=== PATIENT | female | born 2000 | race Caucasian/White ===

== ENCOUNTER 2019-11-18 18:47 | Emergency (ER) | payer SELFPAY ==
[2019-11-18 19:51] LABS: Absolute Lymphocytes (CBC) 1.8 K/uL (0.7-4.9); Basophils % 0.4 % (0-1.3); Hematocrit 39.4 % (36.0-45.0); Lymphocytes % 23.7 % (15.3-44.8); MPV 8.7 fL (7.6-11.3)
[2019-11-18 20:07] LABS: Urine Blood 3+ (NEG); Urine Glucose NEGATIVE (NEG); Urine Protein TRACE (NEG); Urine Specific Gravity 1.025 (1.005-1.030); Urine pH 6.5 (5.0-7.0)
[2019-11-18 20:11] LABS: BUN Blood Urea Nitrogen 8 mg/dL (7-18); Bicarbonate 25 mmol/L (21-32); Glucose Level 77 mg/dL (74-106); Potassium 3.7 mmol/L (3.5-5.1); Sodium Level 142 mmol/L (136-145)
[2019-11-18 20:14] LABS: HCG, Quantitative < 1 mIU/mL (1-3)
--- NOTE | 2019-11-18 20:41 | ER ---
Nurse's Notes [facility] Name: Laurence Espinoza Age: 19 yrs Sex: Female : 2000 Arrival Date: 11/18/2019 Time: 18:56 Bed 5 Private MD: Diagnosis: Abnormal uterine and vaginal bleeding, unspecified Presentation: 11/17 19:06 Chief complaint: Patient states: 5 weeks . Vaginal bleeding, bright, moderate ca1 to heavy, with a few clots since this morning. Reports cramping on lower abdomen. Denies N.V. Coronavirus screen: Client denies travel out of the [place] in the last 14 days. At this time, the client does not indicate any symptoms associated with coronavirus-19. Ebola Screen: Patient negative for fever greater than or equal to 101.5 degrees Fahrenheit, and additional compatible Ebola Virus Disease symptoms Patient denies exposure to infectious person. Patient denies travel to an Ebola-affected area in the 21 days before illness onset. No symptoms or risks identified at this time. Initial Sepsis Screen: Does the patient meet any 2 criteria? No. Patient's initial sepsis screen is negative. Does the patient have a suspected source of infection? No. Patient's initial sepsis screen is negative. Risk Assessment: Do you want to hurt yourself or someone else? Patient reports no desire to harm self or others. Onset of symptoms was November 18, 2019. 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 - Social history:: Smoking status: Patient denies any tobacco usage or history of. Screenin:44 Abuse screen: Denies threats or abuse. Denies injuries from another. Nutritional mg2 screening: No deficits noted. Tuberculosis screening: No symptoms or risk factors identified. Fall Risk IV access (20 points). Assessment: 19:44 General: Appears in no apparent distress. comfortable, Behavior is calm, cooperative. mg2 Pain: Denies pain. Neuro: Level of Consciousness is awake, alert, obeys commands, Oriented to person, place, time, situation. Cardiovascular: Capillary refill < 3 seconds Patient's skin is warm and dry. Respiratory: Airway is patent Respiratory effort is even, unlabored, Respiratory pattern is regular, symmetrical. GI: No signs and/or symptoms were reported involving the gastrointestinal system. : Reports vaginal bleeding that is with clots, moderate flow. EENT: No signs and/or symptoms were reported regarding the EENT system. Derm: Skin is intact, is healthy with good turgor, Skin is pink, warm \T\ dry. normal. Musculoskeletal: Circulation, motion, and sensation intact. Capillary refill < 3 seconds. 20:50 Reassessment: Patient and/or family updated on plan of care and expected duration. Pain ea level reassessed. Patient is alert, oriented x 3, equal unlabored respirations, skin warm/dry/pink. Discharge instruction given to patient, verbalized the understanding of instruction. Pt left ED ambulatory tolerating well. Vital Signs: 19:06 BP 132 / 90; Pulse 100; Resp 16 S; Temp 98.3(TE); Pulse Ox 100% on R/A; Weight 68.95 kg ca1 (R); Height 5 ft. 2 in. (157.48 cm) (R); 19:45 BP 121 / 84; Pulse 88; Resp 18; Pulse Ox 100% on R/A; Pain 0/10; mg2 20:51 BP 120 / 60; Pulse 70; Resp 18; Pulse Ox 99% ; ea 19:06 Body Mass Index 27.80 (68.95 kg, 157.48 cm) ca1 ED Course: 18:56 Patient arrived in ED. bg2 19:08 Triage completed. ca1 19:08 Arm band placed on right wrist. ca1 19:11 Aniket Ramírez PA is PHCP. cp 19:11 Fred Damian MD is Attending Physician. cp 19:22 Dale Hernandez RN is Primary Nurse. mg2 19:45 Patient has correct armband on for positive identification. Door closed. Warm blanket mg2 given. 19:45 No provider procedures requiring assistance completed. Inserted saline lock: 20 gauge mg2 in right antecubital area, using aseptic technique. Blood collected. 20:39 Damon Garza MD is Referral Physician. cp 20:51 IV discontinued, intact, bleeding controlled, No redness/swelling at site. Pressure mg2 dressing applied. Administered Medications: No medications were administered Outcome: 20:40 Discharge ordered by MD. cp 20:51 Discharged to home ambulatory, with family. ea 20:51 Condition: stable 20:51 Instructed on discharge instructions, Demonstrated understanding of instructions, follow-up care. 20:52 Patient left the ED. ea Signatures: Daysi Dave bg2 Aniket Ramírez PA PA cp Antunez, Elena, RN RN ea Gardose, Michele, RN RN mg2 Acob, Cheryl, RN RN ca1
--- NOTE | 2019-11-18 20:41 | EDPHYS ---
Physician Documentation [facility] Name: Laurence Espinoza Age: 19 yrs Sex: Female : 2000 Arrival Date: 11/18/2019 Time: 18:56 Bed 5 Private MD: ED Physician Fred Damian HPI: 11/17 19:21 This 19 yrs old Female presents to ER via Ambulatory with complaints of cp Vaginal Bleeding - + preg test. 19:21 The patient presents with vaginal bleeding that is with clots. Onset: The cp symptoms/episode began/occurred today. Associated signs and symptoms: Pertinent negatives: fever, abdominal pain. 19:25 Patient reports taking several home tests that returned positive. 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 - Social history:: Smoking status: Patient denies any tobacco usage or history of. ROS: 19:30 Constitutional: Negative for body aches, chills, fever, poor PO intake. cp 19:30 Cardiovascular: Negative for chest pain, palpitations. cp 19:30 Respiratory: Negative for cough, shortness of breath, wheezing. 19:30 Abdomen/GI: Negative for abdominal pain, nausea, vomiting, and diarrhea. 19:30 : Positive for vaginal bleeding, Negative for urinary symptoms, pelvic pain. Exam: 19:35 Constitutional: The patient appears in no acute distress, alert, awake, comfortable, cp non-toxic, well developed, well nourished. 19:35 Head/Face: Normocephalic, atraumatic. cp 19:35 Chest/axilla: Inspection: normal. 19:35 Cardiovascular: Rate: tachycardic. 19:35 Respiratory: the patient does not display signs of respiratory distress, Respirations: normal, no use of accessory muscles, no retractions, labored breathing, is not present. Vital Signs: 19:06 BP 132 / 90; Pulse 100; Resp 16 S; Temp 98.3(TE); Pulse Ox 100% on R/A; Weight 68.95 kg ca1 (R); Height 5 ft. 2 in. (157.48 cm) (R); 19:45 BP 121 / 84; Pulse 88; Resp 18; Pulse Ox 100% on R/A; Pain 0/10; mg2 20:51 BP 120 / 60; Pulse 70; Resp 18; Pulse Ox 99% ; ea 19:06 Body Mass Index 27.80 (68.95 kg, 157.48 cm) ca1 MDM: 19:15 Patient medically screened. cp 19:30 Differential diagnosis: ectopic , pelvic inflammatory disease, ruptured cp ectopic , urinary tract infection, threatened miscarriage. 20:40 Data reviewed: vital signs, nurses notes, lab test result(s), and as a result, I will cp discharge patient. 20:40 Counseling: I had a detailed discussion with the patient and/or guardian regarding: the cp historical points, exam findings, and any diagnostic results supporting the discharge/admit diagnosis, lab results, the need for outpatient follow up, an OB/Gyne specialist, to return to the emergency department if symptoms worsen or persist or if there are any questions or concerns that arise at home. ED course: VSS. Discussed results of labs indicating negative . Will discharge to home for continued monitoring. 11/17 19:14 Order name: Quantitative Hcg; Complete Time: 20:27 11/17 19:14 Order name: Abo/rh Typing; Complete Time: 20:27 11/17 19:14 Order name: Basic Metabolic Panel; Complete Time: 20:27 11/17 19:14 Order name: CBC with Diff; Complete Time: 20:27 11/17 19:45 Order name: Urine Dipstick--Ancillary (enter results); Complete Time: 20:27 [facility] 11/17 19:45 Order name: Urine --Ancillary (enter results); Complete Time: 20:27 [facility] 11/17 19:14 Order name: Urine Test (obtain specimen); Complete Time: 19:43 11/17 19:14 Order name: IV Saline Lock; Complete Time: 19:43 11/17 19:14 Order name: Labs collected and sent; Complete Time: 19:43 cp 11/17 19:14 Order name: NPO; Complete Time: 19:44 cp 11/17 19:14 Order name: Urine Dipstick-Ancillary (obtain specimen); Complete Time: :44 cp Administered Medications: No medications were administered Disposition: 21:00 Chart complete. cp 11/18 05:03 Co-signature as Attending Physician, Fred Damian MD. 7 Disposition: 11/18/19 20:40 Discharged to Home. Impression: Abnormal uterine and vaginal bleeding, unspecified. - Condition is Stable. - Discharge Instructions: Abnormal Uterine Bleeding. - Medication Reconciliation Form, Thank You Letter, Antibiotic Education, Prescription Opioid Use form. - Follow up: Damon Garza MD; When: 48 Hours; Reason: Repeat Beta-HCG (48 Hours). - Problem is new. - Symptoms have improved. Signatures: Dispatcher [employer] EDMS Aniket Ramírez PA PA cp Antunez, Elena, RN RN ea Acob, Cheryl, RN RN ca1 Holmes, Maurice, MD MD [facility] Corrections: (The following items were deleted from the chart) 11/17 20:41 19:35 1st Trimest Single 1st Fetus+US.RAD.BRZ ordered. EDAL EDMS 20:52 20:40 11/18/2019 20:40 Discharged to Home. Impression: Abnormal uterine and vaginal ea bleeding, unspecified. Condition is Stable. Forms are Medication Reconciliation Form, Thank You Letter, Antibiotic Education, Prescription Opioid Use. Follow up: Damon Garza; When: 48 Hours; Reason: Repeat Beta-HCG (48 Hours). Problem is new. Symptoms have improved. cp
[2019-11-18 21:30] VITALS: TEMP 98.3
[2019-11-18 21:33] VITALS: BP 120/60; O2SAT 99
== END 2019-11-18 20:52 | disposition home or self-care (01) ==
LOC: ER 18:47
DX: N93.9 Abnormal uterine and vaginal bleeding, unspecified (principal)
CPT/HCPCS: 36415; 80048; 81003; 81025; 84702; 85025; 86900; 86901; 99283

== ENCOUNTER 2021-02-01 20:28 | Emergency (ER) | payer OTHER, SELFPAY ==
[2021-02-01] MEDS ORDERED: PROMETHAZINE INJ 25 MG/ML AMP ONE (21:52)
[2021-02-01] MEDS ORDERED: NA CHLORIDE 0.9% 1,000 ML ONE (21:52)
[2021-02-01 22:03] LABS: Basophils % 0.3 % (0-1.3); Hematocrit 43.2 % (36.0-45.0); Lymphocytes % 9.5 % (15.3-44.8); MPV 9.1 fL (7.6-11.3); RBC Red Blood Cell Count 5.01 M/uL (3.86-4.86)
[2021-02-01 22:19] LABS: ALT/SGPT 19 U/L (12-78); AST/SGOT 10 U/L (15-37); Albumin 4.4 g/dL (3.4-5.0); Alkaline Phosphatase 51 U/L (45-117); BUN Blood Urea Nitrogen 6 mg/dL (7-18); Bicarbonate 21 mmol/L (21-32); Bilirubin Direct 0.2 mg/dL (0-0.2); Bilirubin Total 0.8 mg/dL (0.2-1.0); Glucose Level 79 mg/dL (74-106); Lipase 108 U/L (73-393); Potassium 3.7 mmol/L (3.5-5.1); Protein, Total 8.9 g/dL (6.4-8.2); Sodium Level 140 mmol/L (136-145)
[2021-02-02] MEDS ORDERED: PROMETHAZINE INJ 25 MG/ML AMP ONE (00:15)
[2021-02-02 00:35] LABS: Urine Blood Trace-lysed (Negative); Urine Glucose Negative (Negative); Urine Protein 2+ (Negative); Urine Specific Gravity >=1.030 (1.005-1.030)
--- NOTE | 2021-02-02 00:39 | ER ---
Nurse's Notes [facility] Name: Laurence Espinoza Age: 20 yrs Sex: Female : 2000 Arrival Date: 02/01/2021 Time: 20:35 Bed 17 Private MD: Diagnosis: Vomiting of , unspecified Presentation: 02/01 21:43 Chief complaint: Patient states: Pt is approximately 11 weeks and vomited vg1 today 6x. States is unable to keep anything down. Denies diarrhea. Coronavirus screen: Vaccine status: Patient reports being unvaccinated. Client denies travel out of the [place] in the last 14 days. Ebola Screen: Patient negative for fever greater than or equal to 101.5 degrees Fahrenheit, and additional compatible Ebola Virus Disease symptoms. Initial Sepsis Screen: Does the patient meet any 2 criteria? No. Patient's initial sepsis screen is negative. Does the patient have a suspected source of infection? No. Patient's initial sepsis screen is negative. Risk Assessment: Do you want to hurt yourself or someone else? Patient reports no desire to harm self or others. Onset of symptoms was February 01, 2021. 21:43 Method Of Arrival: Wheelchair vg1 21:43 Acuity: THIERNO 3 vg1 Triage Assessment: 21:49 General: Appears in no apparent distress. uncomfortable, Behavior is calm, cooperative. vg1 Pain: Denies pain. GI: Reports nausea, vomiting. 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 - Social history:: Smoking status: Patient denies any tobacco usage or history of. Screenin:00 Abuse screen: Denies threats or abuse. Denies injuries from another. Nutritional mr2 screening: No deficits noted. Tuberculosis screening: No symptoms or risk factors identified. Fall Risk None identified. Assessment: 11:00 GI: Abdomen is non-distended. mr2 Vital Signs: 21:43 BP 119 / 86; Pulse 111; Resp 16; Temp 98.2; Pulse Ox 100% ; Weight 65.77 kg; Height 5 vg1 ft. 2 in. (157.48 cm); Pain 0/10; 22:53 BP 119 / 76; Pulse 91; Resp 16 S; Pulse Ox 100% on R/A; bb 21:43 Body Mass Index 26.52 (65.77 kg, 157.48 cm) 1 ED Course: 20:35 Patient arrived in ED. wm 21:49 Triage completed. vg1 21:49 Arm band placed on. vg1 22:00 Patient has correct armband on for positive identification. Bed in low position. Side mr2 rails up X2. Adult w/ patient. 22:00 Initial lab(s) drawn, by ED staff, sent to lab. Inserted saline lock: 20 gauge in right vg1 antecubital area, using aseptic technique. ,using aseptic technique. Completed by [facility] Blood collected. 22:00 No provider procedures requiring assistance completed. mr2 22:43 Will Leonard NP is PHCP. pm1 22:43 Fred Damian MD is Attending Physician. pm1 22:52 Joaquin Barno, SULEMA is Primary Nurse. mr2 12/ 00:40 IV discontinued. mr2 Administered Medications: 12 22:00 Drug: NS 0.9% 1000 ml Route: IV; Rate: 1000 ml; Site: right antecubital; vg1 22:47 Follow up: IV Status: Completed infusion; IV Intake: 1000ml bb 22:01 Drug: Phenergan (promethazine) 12.5 mg Route: IVP; Site: right antecubital; vg1 22:47 Follow up: Response: No adverse reaction bb 22:53 Drug: NS 0.9% 1000 ml Route: IV; Rate: 1000 ml; Site: left antecubital; mr2 12 00:27 Drug: Phenergan (promethazine) 12.5 mg Route: IVP; Site: right antecubital; mr2 Intake: 12 22:47 IV: 1000ml; Total: 1000ml. bb Outcome: 02/02 00:38 Discharge ordered by . pm1 00:41 Discharged to home ambulatory. mr2 00:41 Condition: stable 00:41 Discharge instructions given to patient, Instructed on follow up and referral plans. medication usage. 00:42 Patient left the ED. mr2 Signatures: Jennifer Menard, RN RN bb Will Leonard, DATA STEWARD DATA STEWARD pm1 Whitney Castro RN RN vg1 Kaitlynn Fitzgerald Joaquin Baron, SULEMA RN mr2
--- NOTE | 2021-02-02 00:39 | EDPHYS ---
Physician Documentation [facility] Name: Laurence Espinoza Age: 20 yrs Sex: Female : 2000 Arrival Date: 02/01/2021 Time: 20:35 Bed 17 Private MD: ED Physician Fred Damian HPI: 02/01 21:53 This 20 yrs old Female presents to ER via Wheelchair with complaints of 11 WKS PREG, pm1 Vomiting. 21:53 The patient presents to the emergency department with vomiting, 6 times today. Onset: pm1 The symptoms/episode began/occurred Onset of morning sickness at 6 weeks. Patient presenting today with increased vomiting than her norm 6 times today. Possible causes: . The symptoms are aggravated by food , The symptoms are alleviated by nothing. 21:53 Associated signs and symptoms: The patient has no apparent associated signs or pm1 symptoms, Pertinent negatives: abdominal pain, dysuria, fever, Vaginal bleeding. Severity of symptoms: in the emergency department the symptoms are worse. The patient has not recently seen a physician, has an appointment scheduled. 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 - Social history:: Smoking status: Patient denies any tobacco usage or history of. ROS: 21:53 Constitutional: Negative for fever, chills, and weight loss, Cardiovascular: Negative pm1 for chest pain, palpitations, and edema, Respiratory: Negative for shortness of breath, cough, wheezing, and pleuritic chest pain. 21:53 Back: Negative for injury and pain, : Negative for injury, bleeding, discharge, and swelling, MS/Extremity: Negative for injury and deformity, Skin: Negative for injury, rash, and discoloration, Neuro: Negative for headache, weakness, numbness, tingling, and seizure. 21:53 Abdomen/GI: Positive for nausea and vomiting, Negative for abdominal pain, diarrhea, constipation. 21:53 All other systems are negative. Exam: 21:53 Constitutional: This is a well developed, well nourished patient who is awake, alert, pm1 and in no acute distress. Head/Face: Normocephalic, atraumatic. 21:53 Eyes: Exam is negative for acute changes, Extraocular movements: intact throughout, Conjunctiva: no acute changes, no injection, Sclera: no acute changes, icterus, is not appreciated. Vital Signs: 21:43 BP 119 / 86; Pulse 111; Resp 16; Temp 98.2; Pulse Ox 100% ; Weight 65.77 kg; Height 5 vg1 ft. 2 in. (157.48 cm); Pain 0/10; 22:53 BP 119 / 76; Pulse 91; Resp 16 S; Pulse Ox 100% on R/A; bb 21:43 Body Mass Index 26.52 (65.77 kg, 157.48 cm) vg1 MDM: 22:44 Patient medically screened. pm1 12 00:11 Data reviewed: vital signs. Data interpreted: Pulse oximetry: on room air is 100 %. pm1 Interpretation: normal. 00:11 ED course: Patient without any vomiting in the ER. Patient passed p.o. challenge. pm1 00:37 Counseling: I had a detailed discussion with the patient and/or guardian regarding: the pm1 historical points, exam findings, and any diagnostic results supporting the discharge/admit diagnosis, lab results, the need for outpatient follow up, to return to the emergency department if symptoms worsen or persist or if there are any questions or concerns that arise at home. 02/01 21:46 Order name: Basic Metabolic Panel; Complete Time: 22:43 pm1 02/01 21:46 Order name: CBC with Diff; Complete Time: 22:43 pm1 02/01 21:46 Order name: Hepatic Function; Complete Time: 22:43 pm1 02/01 21:46 Order name: Lipase; Complete Time: 22:43 pm1 02/02 00:34 Order name: Urine Dipstick-Ancillary; Complete Time: 00:37 EDMS 02/01 21:46 Order name: IV Saline Lock; Complete Time: 21:55 pm1 02/01 21:46 Order name: Labs collected and sent; Complete Time: 21:55 pm1 Administered Medications: 02/01 22:00 Drug: NS 0.9% 1000 ml Route: IV; Rate: 1000 ml; Site: right antecubital; vg1 22:47 Follow up: IV Status: Completed infusion; IV Intake: 1000ml bb 22:01 Drug: Phenergan (promethazine) 12.5 mg Route: IVP; Site: right antecubital; vg1 22:47 Follow up: Response: No adverse reaction 22:53 Drug: NS 0.9% 1000 ml Route: IV; Rate: 1000 ml; Site: left antecubital; mr2 02/02 00:27 Drug: Phenergan (promethazine) 12.5 mg Route: IVP; Site: right antecubital; mr2 Disposition: 05:18 Co-signature as Attending Physician, Fred Damian MD. 7 Disposition Summary: 02/02/21 00:38 Discharge Ordered Location: Home pm1 Problem: new pm1 Symptoms: have improved pm1 Condition: Stable pm1 Diagnosis - Vomiting of , unspecified pm1 Followup: pm1 - With: Emergency Department - When: As needed - Reason: Worsening of condition Followup: pm1 - With: Private Physician - When: 2 - 3 days - Reason: Recheck today's complaints, Continuance of care, Re-evaluation by your physician Discharge Instructions: - Discharge Summary Sheet pm1 - Morning Sickness pm1 Forms: - Medication Reconciliation Form pm1 - Thank You Letter pm1 - Antibiotic Education pm1 - Prescription Opioid Use pm1 Prescriptions: - promethazine 12.5 mg Rectal suppository - insert 1 suppository by RECTAL route every 6 hours As needed; 12 suppository; pm1 Refills: 0, Product Selection Permitted - promethazine 25 mg Oral Tablet - take 1 tablet by ORAL route every 6 hours As needed; 20 tablet; Refills: 0, pm1 Product Selection Permitted Signatures: Dispatcher [employer] Will Galeano NP [employer] SCALA DEVELOPER pm1 Whitney Castro RN RN 1 Fred Damian MD MD 7 Joaquin Baron RN RN mr2 Jennifer Menard RN bb
[2021-02-02 00:53] VITALS: TEMP 98.2; O2SAT 100
[2021-02-02 00:54] VITALS: BP 119/76
== END 2021-02-02 00:42 | disposition home or self-care (01) ==
LOC: ER 20:28
DX: O21.9 Vomiting of pregnancy, unspecified (principal); Z3A.11 11 weeks gestation of pregnancy
CPT/HCPCS: 96361; 85025; 80048; 36415; 80076; 81003; 83690; 96374; 99283; J2550 ×2; J7030

== ENCOUNTER 2021-02-12 09:21 | Emergency (ER) | payer OTHER ==
--- OUTSIDE RECORDS SUMMARY | 2021-02-12 09:23 | XMS REPORT | Continuity of Care Document ---
:2000 Author Organization [facility] t Address [address] [place] [address] Care Team Providers Name Role Phone PCP, DOES NOT HAVE A Primary Care Physician Unavailable ALHAJI Attending Clinician Unavailable Alhaji ANDRADE Attending Clinician Doctor Unassigned, Name Attending Clinician Unavailable Payers Payer Name Policy Type Policy Number Effective Date Expiration Date S ource MEDICAID OF [place] [id number] 2021 00:00:00 Problems Condition Condition Condition Status Onset Resolution Last Treating Co mments Source Name Details Category Date Date Treatment Clinician Date Nausea and Nausea and Disease Active 2020-03 U nivers vomiting vomiting 04-09 ity of in in 00:00: [place] 00 [facility] Encounter Encounter Disease Active 2020-03 Uni vers for for 04-09 [place] 00 Medical normal normal Branch first first in first in first trimester trimester Allergies, Adverse Reactions, Alerts Allergy Allergy Status Severity Reaction(s) Onset Inactive Treating Comm ents Source Name Type Date Date Clinician NO KNOWN Drug Active Univers ALLERGIE Class ity of S [facility] Social History Social Habit Start Date Stop Date Quantity Comments Source ASSERTION 2020-11-29 [facility] 00:00:00 [facility] Tobacco use and 2021-02-06 2021-02-06 Never used Universit y of exposure 00:00:00 00:00:00 [facility] Alcohol intake 2021-02-06 2021-02-06 Ex-drinker [facility] 00:00:00 00:00:00 (finding) [facility] Sex Assigned At [birth year] Universit y of 00:00:00 00:00:00 [facility] Smoking Status Start Date Stop Date Source Unknown if ever smoked [facility] Never smoker [facility] Medications Ordered Filled Start Stop Current Ordering Indication Dosage Frequency Signature Comments Components Source Medication Medication Date Date Medication? Clinician (SIG) Name Name pyridoxine, 2020-03 Yes [id number] 25mg Take 1 Univers VITAMIN 2-09 tablet by ity of B-6, 25 [place] 00:00[place] (three) Medical times Branch daily. doxylamine 2020-03 Yes [id number] 25mg Take 1 U nivers 25 mg 2-09 tablet by ity of tablet 00:00: mouth at [place] 00 bedtime. Medical Branch metoclopram 2020-03 Yes [id number] 5mg Take 1 Univers nicole HCl 2-09 tablet by ity of (REGLAN) 5 00:00: mouth [place] mg tablet 00 every 6 Medical (six) Branch hours as needed for Nausea and Vomiting (N/V). proMETHazin 2020-03 Yes TAKE ONE Un odell e 25 mg 2-05 (1) ity of tablet 00:00: TABLET(S) [place] 00 BY MOUTH Medical EVERY SIX Branch HOURS NEEDED FOR NAUSEA. PROMETHEGAN 2020-03 Yes UNWRAP AND Univers 12.5 mg 2-05 INSERT ONE ity of suppository 00:00: (1) [place] 00 SUPPOSITOR Medical Y INTO THE Branch RECTUM EVERY 6 HOURS NEEDED. Vital Signs Vital Name Observation Time Observation Value Comments Source Systolic blood 2021-02-06 16:29:00 119 mm[Hg] Univer sity of pressure [facility] Diastolic blood 2021-02-06 16:29:00 81 mm[Hg] Unive [facility] Heart rate 2021-02-06 16:29:00 88 /min [facility] Body temperature 2021-02-06 16:29:00 36.83 Ema [facility] Respiratory rate 2021-02-06 16:29:00 18 /min [facility] Body height 2021-02-06 16:29:00 157.5 cm [facility] Body weight 2021-02-06 16:29:00 66.588 kg [facility] BMI 2021-02-06 16:29:00 26.85 kg/m2 [facility] Procedures Procedure Date / Time Performed Performing Clinician Jay e <14 WEEKS US 2021-02-06 17:21:01 AlhajiPeacerajiv Aviles [facility] POCT URINALYSIS W/O 2021-02-06 16:57:00 Winston Ramos [facility] SPECIFIC GRAVITY [facility] POCT TEST 2021-02-06 16:33:00 Alhaji Winston [facility] ASSIGNMENT OF BENEFITS 2021-02-06 15:35:53 Doctor Unassigned, No [facility] Encounters Start End Encounter Admission Attending Care Care Encounter Source Date/Time Date/Time Type Type Clinicians Facility Department ID 2021-03-06 2021-03-06 Outpatient R WINSTON RAMOS [facility] [id number] [facility] 16:00:00 16:00:00 [id number] [facility] 2021-03-06 2021-03-06 Outpatient R WINSTON RAMOS [facility] [id number] Univers 16:00:00 16:00:00 [facility] 2021-02-13 2021-02-13 Outpatient R WINSTON RAMOS [facility] [id number] Univers 10:45:00 10:45:00 [id number] [facility] 2021-02-13 2021-02-13 Outpatient R PEACE RAMOSN [facility] [id number] Univers 10:45:00 10:45:00 [facility] 2021-02-06 2021-02-06 Initial Winston Ramos [facility] [id number] Univers 09:36:52 11:17:11 NTAALIA [id number] i ty of Visit WOMEN'S [id number] [facility] [id number] [place] [address] Branch 2021-02-06 2021-02-06 Outpatient R PEACE RAMOSN [facility] [id number] Univers 09:30:00 [facility]:17:11 [facility] 2021-02-06 2021-02-06 Orders Doctor JJ [id number] Univers 00:00:00 00:00:00 Only Unassigned, RAYNA [id number] ity of [facility] [id number] [place] as [id number] [address] Results Test Description Test Time Test Comments Results Result Comments Source POCT URINALYSIS W/O SPECIFIC GRAVITY 2021-02-06 16:58:00 Test Item Value Reference Range Interpretation Comme nts POCT PH U (test code = 3254) n/a 5-8 POCT U LEUK EST (test code = 3263) n/a Negative - Negative POCT U NIT (test code = 3262) n/a Negative - Negative POCT U PROT (test code = 3259) Negative Negative - Negative POCT U GLU (test code = 3256) Negative Negative - Negative POCT U KETONE (test code = 3258) n/a Negative - Negative POCT U BLD (test code = 3257) n/a Negative - Negative Lab Interpretation (test code = 24322-3) [id number] 16:33:00 Test Item Value Reference Range Interpretation Comments POCT PREG (test code = 1605) Positive On board controls acceptable with C Yes Line (test code = 3574) POCT PREG LOT # (test code = 3575) POCT PREG TEST DATE (test code = 3576) [facility]
[2021-02-12] MEDS ORDERED: NA CHLORIDE 0.9% 1,000 ML ONE ×3 (09:41→13:21)
[2021-02-12] MEDS ORDERED: METOCLOPRAMIDE 10 MG/2mL INJ ONE (09:41)
[2021-02-12] MEDS ORDERED: DIPHENHYDRAMINE 50 MG/ML VIAL ONE (09:57)
[2021-02-12 10:34] LABS: Absolute Lymphocytes (CBC) 0.7 K/uL (0.7-4.9); Basophils % 0.1 % (0-1.3); Hematocrit 41.9 % (36.0-45.0); Lymphocytes % 7.3 % (15.3-44.8); MPV 9.8 fL (7.6-11.3); RBC Red Blood Cell Count 5.02 M/uL (3.86-4.86)
[2021-02-12 11:29] LABS: Urine Blood Negative (Negative); Urine Glucose Negative (Negative); Urine Protein 2+ (Negative); Urine Specific Gravity >=1.030 (1.005-1.030)
[2021-02-12 12:44] LABS: ALT/SGPT 37 U/L (12-78); AST/SGOT 13 U/L (15-37); Albumin 4.3 g/dL (3.4-5.0); Alkaline Phosphatase 54 U/L (45-117); BUN Blood Urea Nitrogen 6 mg/dL (7-18); Bicarbonate 17 mmol/L (21-32); Bilirubin Direct 0.2 mg/dL (0-0.2); Bilirubin Total 0.8 mg/dL (0.2-1.0); Glucose Level 103 mg/dL (74-106); Lipase 238 U/L (73-393); Protein, Total 8.9 g/dL (6.4-8.2); Sodium Level 137 mmol/L (136-145)
[2021-02-12 12:46] LABS: Blood Morphology Comment NOT SEEN (NOT SEEN); Platelet Estimate ADEQ
[2021-02-12 12:49] LABS: Potassium 2.9 mmol/L (3.5-5.1)
[2021-02-12] MEDS ORDERED: KCL 20 MEQ/100 mL IVPB 100 ML IV ONE (13:21)
[2021-02-12] MEDS ORDERED: POTASSIUM 25 MEQ EFFERV TAB ONE (13:21)
[2021-02-12] MEDS ORDERED: ONDANSETRON 4 MG/2 ML VIAL ONE (16:31)
[2021-02-12] MEDS ORDERED: FAMOTIDINE 20 MG/2 ML VIAL IV ONE (17:15)
--- NOTE | 2021-02-12 17:26 | ER ---
Nurse's Notes [facility] Name: Laurence Espinoza Age: 20 yrs Sex: Female : 2000 Arrival Date: 02/12/2021 Time: 09:23 Bed 15 Private MD: Diagnosis: Hyperemesis gravidarum with metabolic disturbance;Hypokalemia Presentation: 02/12 09:28 Chief complaint: Patient states: N/V for 2 days. 12 weeks . G1, P0. Coronavirus ll1 screen: Vaccine status: Patient reports being unvaccinated. Client denies travel out of the [place] in the last 14 days. At this time, the client does not indicate any symptoms associated with coronavirus-19. Ebola Screen: Patient denies travel to an Ebola-affected area in the 21 days before illness onset. Initial Sepsis Screen: Does the patient meet any 2 criteria? HR > 90 bpm. No. Patient's initial sepsis screen is negative. Does the patient have a suspected source of infection? No. Patient's initial sepsis screen is negative. Risk Assessment: Do you want to hurt yourself or someone else? Patient reports no desire to harm self or others. Onset of symptoms was February 11, 2021. 09:28 Method Of Arrival: Wheelchair ll1 09:28 Acuity: THIERNO 3 ll1 [place] EXPERT: 10:15 1, Living 0, LMP 11/15/2020, Verified, EDC 08/22/2021, Gestational age eo2 from LMP: 12 weeks 5 days Historical: - Allergies: 09:30 No Known Allergies; ll1 - PMHx: 09:30 None; ll1 - PSHx: 09:30 None; ll1 - Immunization history:: Client reports having NOT received the Covid vaccine. Flu vaccine status is unknown. - Social history:: Smoking status: Patient denies any tobacco usage or history of. Screenin:49 Abuse screen: Denies threats or abuse. Nutritional screening: No deficits noted. tw2 Tuberculosis screening: No symptoms or risk factors identified. Fall Risk None identified. Assessment: 09:50 Reassessment: pts mother reports Dr. Nash prescribed the pt Reglan last Wednesday and she tw2 last took a dose yesterday but cant keep anything down. 10:10 General: Appears in no apparent distress. Behavior is cooperative, anxious. Pain: eo2 Denies pain. Neuro: No deficits noted. Denies dizziness, headache. Cardiovascular: No deficits noted. Heart tones S1 S2. Respiratory: No deficits noted. Breath sounds are clear bilaterally. GI: Pt is actively vomiting bile, Bowel sounds present X 4 quads. GI: Reports nausea, vomiting, N/V since 5 weeks gestation, reports symptoms ongoing since, unrelieved by Rx gven during last visit. Pt denies abd pain, or vag bleeding. : No signs and/or symptoms were reported regarding the genitourinary system. 11:21 Reassessment: Patient states symptoms have improved. pt reports improved N/V, states "I eo2 feel better". ambulated to restroom to provide urine sample, back in room in NAD. 11:31 Reassessment: pt requested ice chips as she is feeling better. provider agreeable. ice tw2 chips given to pt at this time. Patient states feeling better. Patient states symptoms have improved. 11:45 Reassessment: pt reports ice chips made her "a bit nauseous but im glad to have tw2 something going down for once". 16:34 Reassessment: pt c/o nauseousness. medicated as ordered per provider. tw2 18:11 Reassessment: Patient appears in no apparent distress at this time. Patient and/or eo2 family updated on plan of care and expected duration. Pain level reassessed. Patient states feeling better. Patient states symptoms have improved. pt's HR remains elevated, verbalized improved nausea and acid reflux. Vital Signs: 09:28 BP 107 / 76; Pulse 125; Resp 16; Temp 97.0; Pulse Ox 100% ; Weight 66.22 kg; Height 5 ll1 ft. 2 in. (157.48 cm); Pain 0/10; 09:48 BP 110 / 83; Pulse 117; Resp 17; Pulse Ox 100% on R/A; tw2 10:30 BP 116 / 76; Pulse 97; Resp 17; Pulse Ox 100% on R/A; tw2 11:00 BP 116 / 76; Pulse 100; Resp 15; Pulse Ox 100% ; Pain 0/10; eo2 12:00 BP 111 / 74; Pulse 98; Resp 17; Pulse Ox 100% on R/A; tw2 13:00 BP 117 / 74; Pulse 109; Resp 18; Pulse Ox 100% on R/A; tw2 14:00 BP 106 / 56; Pulse 124; Resp 17; Pulse Ox 100% on R/A; eo2 15:30 BP 109 / 49; Pulse 117; Resp 17; Pulse Ox 100% on R/A; tw2 16:28 BP 110 / 79; Pulse 108; Resp 17; Pulse Ox 100% on R/A; tw2 17:30 BP 93 / 50; Pulse 105; Resp 17; Pulse Ox 100% ; Pain 0/10; eo2 18:09 BP 110 / 58; Pulse 113; Resp 17; Pulse Ox 98% ; Pain 0/10; eo2 09:28 Body Mass Index 26.70 (66.22 kg, 157.48 cm) ll1 14:00 Shimon KAUR aware of increased HR eo2 ED Course: 09:23 Patient arrived in ED. as 09:28 Arm band placed on Patient placed in an exam room, on a stretcher. ll1 09:29 Triage completed. 1 09:30 Shimon King PA is PHCP. [facility] 09:30 Hong Lawrence MD is Attending Physician. [facility] 09:33 Stella So, SULEMA is Primary Nurse. eo2 09:45 Bed in low position. Call light in reach. Adult w/ patient. Pulse ox on. NIBP on. tw2 10:15 Door closed. Noise minimized. Warm blanket given. Verbal reassurance given. Family eo2 accompanied patient. 10:15 No provider procedures requiring assistance completed. Inserted saline lock: 20 gauge eo2 in right antecubital area, using aseptic technique. 10:29 Basic Metabolic Panel Sent. eo2 10:29 CBC with Diff Sent. eo2 10:29 Hepatic Function Sent. eo2 10:29 Lipase Sent. eo2 12:48 Notified Nurse Practitioner and/or Physician Substance Abuse Prevention Coordinator of a critical lab result(s), k+ eo2 is 2.9. 15:30 Notified Nurse Practitioner and/or Physician Substance Abuse Prevention Coordinator of pt requesting nausea tw2 medication, Shimon KAUR made aware. 17:43 Report given to Jihan Pan RN at [facility]. eo2 17:44 SARS-COV-2 RT PCR (Document "Date of Onset" if Symptomatic) Sent. eo2 18:11 Patient transferred, IV remains in place. eo2 Administered Medications: 10:15 Drug: NS 0.9% 1000 ml Route: IV; Rate: 1 bolus; Site: right antecubital; eo2 11:15 Follow up: Response: No adverse reaction; IV Status: Completed infusion; IV Intake: tw2 1000ml 10:15 Drug: Reglan (metoCLOPramide) 20 mg Route: IVP; Site: right antecubital; eo2 11:34 Follow up: Response: No adverse reaction tw2 10:15 Drug: diphenhydrAMINE 12.5 mg Route: IVP; Site: right antecubital; eo2 11:34 Follow up: Response: No adverse reaction; Marked relief of symptoms tw2 11:45 Drug: NS 0.9% 1000 ml Route: IV; Rate: 1 bolus; Site: right antecubital; tw2 12:45 Follow up: Response: No adverse reaction; IV Status: Completed infusion; IV Intake: eo2 1000ml 13:45 Drug: K-Lyte (potassium) Effervescent Tablet 50 mEq {Note: mixed in 4 oz apple juice as eo2 requested per pt.} Route: PO; 14:58 Follow up: Response: No adverse reaction eo2 13:45 Drug: Potassium Chloride 20 mEq Route: IV; Rate: calculated rate; Site: right eo2 antecubital; 14:59 Follow up: Response: No adverse reaction; IV Status: Completed infusion; IV Intake: eo2 100ml 13:45 Drug: NS 0.9% 1000 ml Route: IV; Rate: 1 bolus; Site: right antecubital; eo2 14:59 Follow up: Response: No adverse reaction; IV Status: Completed infusion; IV Intake: eo2 1000ml 16:34 Drug: Zofran (Ondansetron) 4 mg Route: IVP; Site: right antecubital; tw2 17:14 Follow up: Response: No adverse reaction; Nausea is decreased tw2 17:22 Drug: Pepcid (famotidine) 20 mg Route: IVP; Site: right antecubital; eo2 18:00 Follow up: Response: No adverse reaction eo2 Intake: 11:15 IV: 1000ml; Total: 1000ml. tw2 12:45 IV: 1000ml; Total: 2000ml. eo2 14:59 IV: 100ml; Total: 2100ml. eo2 14:59 IV: 1000ml; Total: 3100ml. eo2 Outcome: 17:25 ER care complete, transfer ordered by MD. teixeira 18:10 Transferred by ground EMS Note: [facility] eo2 18:10 Transferred Note: By [facility]- report given to Corinna 18:10 Condition: stable 18:10 Instructed on the need for transfer. 18:22 Patient left the ED. eo2 Signatures: Shimon King PA PA jmm Martinez, Amelia as Wise, Tara, RN RN tw2 Herbert Rae RN RN ll1 Stella So RN RN eo2 Corrections: (The following items were deleted from the chart) 15:49 14:00 BP 106 / 56; Pulse 124bpm; Resp 17bpm; Pulse Ox 100% RA; tw2 eo2 17:44 17:44 Response: No adverse reaction; Nausea is decreased eo2 eo2
--- NOTE | 2021-02-12 17:26 | EDPHYS ---
Physician Documentation [facility] Name: Laurence Espinoza Age: 20 yrs Sex: Female : 2000 Arrival Date: 02/12/2021 Time: 09:23 Bed 15 Private MD: ED Physician Hong Lawrence HPI: 02/12 09:33 This 20 yrs old Female presents to ER via Wheelchair with complaints of Nausea/Vomiting jmm - 12 wks preg. 09:33 The patient presents to the emergency department with nausea, vomiting. Onset: The jmm symptoms/episode began/occurred gradually, 7 week(s) ago. Possible causes: . The symptoms are aggravated by nothing. The symptoms are alleviated by nothing. This is a 20-year-old female G1 currently 12 weeks IUP the presents emerged department with ongoing vomiting since the fifth with her . Patient was sent over by QA REVIEWER for IV fluids.. QA REVIEWER: 10:15 1, Living 0, LMP 11/15/2020, Verified, EDC 08/22/2021, Gestational age eo2 from LMP: 12 weeks 5 days Historical: - Allergies: 09:30 No Known Allergies; ll1 - PMHx: 09:30 None; ll1 - PSHx: 09:30 None; ll1 - Immunization history:: Client reports having NOT received the Covid vaccine. Flu vaccine status is unknown. - Social history:: Smoking status: Patient denies any tobacco usage or history of. ROS: 09:33 Constitutional: Negative for fever, chills, and weight loss, Cardiovascular: Negative jmm for chest pain, palpitations, and edema, Respiratory: Negative for shortness of breath, cough, wheezing, and pleuritic chest pain. 09:33 Abdomen/GI: Positive for nausea and vomiting. 09:33 All other systems are negative. Exam: 09:33 Constitutional: This is a well developed, well nourished patient who is awake, alert, jmm and in no acute distress. Head/Face: atraumatic. Eyes: EOMI, no conjunctival erythema appreciated ENT: Moist Mucus Membranes Neck: Trachea midline, Supple Chest/axilla: Normal chest wall appearance and motion. Respiratory: Normal respirations, no respiratory distress appreciated Back: Normal ROM Skin: General appearance color normal MS/ Extremity: Moves all extremities, no obvious deformities appreciated, no edema noted to the lower extremities Neuro: Awake and alert, normal gait Psych: Behavior is normal, Mood is normal, Patient is cooperative and pleasant 09:33 Cardiovascular: Rate: tachycardic. Vital Signs: 09:28 BP 107 / 76; Pulse 125; Resp 16; Temp 97.0; Pulse Ox 100% ; Weight 66.22 kg; Height 5 ll1 ft. 2 in. (157.48 cm); Pain 0/10; 09:48 BP 110 / 83; Pulse 117; Resp 17; Pulse Ox 100% on R/A; tw2 10:30 BP 116 / 76; Pulse 97; Resp 17; Pulse Ox 100% on R/A; tw2 11:00 BP 116 / 76; Pulse 100; Resp 15; Pulse Ox 100% ; Pain 0/10; eo2 12:00 BP 111 / 74; Pulse 98; Resp 17; Pulse Ox 100% on R/A; tw2 13:00 BP 117 / 74; Pulse 109; Resp 18; Pulse Ox 100% on R/A; tw2 14:00 BP 106 / 56; Pulse 124; Resp 17; Pulse Ox 100% on R/A; eo2 15:30 BP 109 / 49; Pulse 117; Resp 17; Pulse Ox 100% on R/A; tw2 16:28 BP 110 / 79; Pulse 108; Resp 17; Pulse Ox 100% on R/A; tw2 17:30 BP 93 / 50; Pulse 105; Resp 17; Pulse Ox 100% ; Pain 0/10; eo2 18:09 BP 110 / 58; Pulse 113; Resp 17; Pulse Ox 98% ; Pain 0/10; eo2 09:28 Body Mass Index 26.70 (66.22 kg, 157.48 cm) ll1 14:00 Shimon KAUR aware of increased HR eo2 MDM: 09:40 Patient medically screened. [facility] 15:09 Data reviewed: vital signs, nurses notes. Counseling: I had a detailed discussion with puneet the patient and/or guardian regarding: the historical points, exam findings, and any diagnostic results supporting the discharge/admit diagnosis, lab results. 17:24 ED course: Patient continues to be tachycardic after 3L. Patient still has some nausea puneet but states feeling better. I discussed with the QA REVIEWER at [facility] the patient's case who accepted admission. Will transfer for continuity of care. Patient and agree with this. 02/12 09:33 Order name: Basic Metabolic Panel; Complete Time: 12:50 jmm 02/12 09:33 Order name: CBC with Diff; Complete Time: 12:50 jmm 02/12 09:33 Order name: Hepatic Function; Complete Time: 12:50 jmm 02/12 09:33 Order name: Lipase; Complete Time: 12:50 jmm 02/12 11:29 Order name: Urine Dipstick-Ancillary; Complete Time: 11:32 EDMS 02/12 12:46 Order name: Manual Differential; Complete Time: 12:50 EDMS 02/12 16:55 Order name: SARS-COV-2 RT PCR (Document "Date of Onset" if Symptomatic) em1 02/12 09:33 Order name: IV Saline Lock; Complete Time: 10:29 jmm 02/12 09:33 Order name: Labs collected and sent; Complete Time: 10:29 jmm 02/12 09:33 Order name: Urine Dipstick-Ancillary (obtain specimen); Complete Time: 11:30 jmm Administered Medications: 10:15 Drug: NS 0.9% 1000 ml Route: IV; Rate: 1 bolus; Site: right antecubital; eo2 11:15 Follow up: Response: No adverse reaction; IV Status: Completed infusion; IV Intake: tw2 1000ml 10:15 Drug: Reglan (metoCLOPramide) 20 mg Route: IVP; Site: right antecubital; eo2 11:34 Follow up: Response: No adverse reaction tw2 10:15 Drug: diphenhydrAMINE 12.5 mg Route: IVP; Site: right antecubital; eo2 11:34 Follow up: Response: No adverse reaction; Marked relief of symptoms tw2 11:45 Drug: NS 0.9% 1000 ml Route: IV; Rate: 1 bolus; Site: right antecubital; tw2 12:45 Follow up: Response: No adverse reaction; IV Status: Completed infusion; IV Intake: eo2 1000ml 13:45 Drug: K-Lyte (potassium) Effervescent Tablet 50 mEq {Note: mixed in 4 oz apple juice as eo2 requested per pt.} Route: PO; 14:58 Follow up: Response: No adverse reaction eo2 13:45 Drug: Potassium Chloride 20 mEq Route: IV; Rate: calculated rate; Site: right eo2 antecubital; 14:59 Follow up: Response: No adverse reaction; IV Status: Completed infusion; IV Intake: eo2 100ml 13:45 Drug: NS 0.9% 1000 ml Route: IV; Rate: 1 bolus; Site: right antecubital; eo2 14:59 Follow up: Response: No adverse reaction; IV Status: Completed infusion; IV Intake: eo2 1000ml 16:34 Drug: Zofran (Ondansetron) 4 mg Route: IVP; Site: right antecubital; tw2 17:14 Follow up: Response: No adverse reaction; Nausea is decreased tw2 17:22 Drug: Pepcid (famotidine) 20 mg Route: IVP; Site: right antecubital; eo2 18:00 Follow up: Response: No adverse reaction eo2 Disposition Summary: 02/12/21 17:25 Transfer Ordered Transfer Location: [facility] Reason: Higher level of care jm Condition: Stable jm Problem: an acute exacerbation jmm Symptoms: have improved jmm Accepting Physician: [place](02/12/21 18:22) eo2 Diagnosis - Hyperemesis gravidarum with metabolic disturbance jmm - Hypokalemia [facility] Forms: - Medication Reconciliation Form m - SBAR form [facility] Addendum: 02/15/2021 07:17 Co-signature as Attending Physician, Hong Lawrence MD I agree with the assessment and r n plan of care. Attestation: The patient's history, exam findings, diagnostics, and a summary of any interventions or procedures was reviewed in detail with Shimon KAUR. Signatures: Dispatcher [employer] Shimon Toure PA PA Hong Sweeney MD MD rn Wise, Tara, RN RN tw2 Herbert Rae RN RN ll1 Stella So RN RN eo2 Corrections: (The following items were deleted from the chart) 02/12 17:25 17:25 [facility]: 17:25 Adum [facility] eo2
[2021-02-12 18:34] VITALS: TEMP 97
[2021-02-12 18:49] VITALS: BP 110/58; O2SAT 98
== END 2021-02-12 18:22 | disposition short-term general hospital (02) ==
LOC: ER 09:21
DX: O21.1 Hyperemesis gravidarum with metabolic disturbance (principal); Z3A.12 12 weeks gestation of pregnancy; Z20.822 Contact with and (suspected) exposure to COVID-19
CPT/HCPCS: 96365; 96361; 85025; 80048; 36415; 80076; 81003; 83690; 96375; 99285; U0003; J2765; J1200; J3480; J7030 ×3; J2405

== ENCOUNTER 2021-08-27 09:13 | Emergency (ER) | payer OTHER ==
--- NOTE | 2021-08-27 11:54 | EDPHYS ---
Physician Documentation [facility] Name: Laurence Espinoza Age: 20 yrs Sex: Female : 2000 Arrival Date: 08/27/2021 Time: 09:21 Bed DIS3 Private MD: ED Physician Aniket Alfonso HPI: 08/27 09:30 This 20 yrs old Female presents to ER via Ambulatory with complaints of Headache, Fever.jmm 09:30 Onset: The symptoms/episode began/occurred gradually. This is a 20 year old female with jmm no chronic medical conditions that presents to the ED with complaints of fever, headache beginning yesterday. Denies cough. Patient is currently breast feeding. Denies vomiting. . INDUSTRY ANALYST: 10:19 LMP N/A - Recent aa5 Historical: - Allergies: 09:41 No Known Allergies; iw - Home Meds: 09:41 None [Active]; iw - PMHx: 09:41 None; iw - PSHx: 09:41 None; iw - Immunization history:: Client reports having NOT received the Covid vaccine. - Social history:: Smoking status: Patient denies any tobacco usage or history of. ROS: 09:30 Constitutional: Positive for body aches. jmm 09:30 Respiratory: Positive for cough. 09:30 Neuro: Positive for headache. 09:30 All other systems are negative. Exam: 09:30 Constitutional: This is a well developed, well nourished patient who is awake, alert, jmm and in no acute distress. Head/Face: atraumatic. Eyes: EOMI, no conjunctival erythema appreciated ENT: Moist Mucus Membranes Neck: Trachea midline, Supple Chest/axilla: Normal chest wall appearance and motion. Cardiovascular: Regular rate and rhythm. No edema appreciated Respiratory: Normal respirations, no respiratory distress appreciated Abdomen/GI: Non distended, soft Back: Normal ROM Skin: General appearance color normal MS/ Extremity: Moves all extremities, no obvious deformities appreciated, no edema noted to the lower extremities Neuro: Awake and alert Psych: Behavior is normal, Mood is normal, Patient is cooperative and pleasant Vital Signs: 09:38 Resp 16 S; Temp 98.4(O); iw 09:57 BP 121 / 79; Pulse 109; Resp 16; Pulse Ox 98% on R/A; iw 11:20 BP 107 / 92; Pulse 98; Resp 17 S; Temp 98.4(O); Pulse Ox 100% on R/A; aa5 MDM: 09:30 Patient medically screened. [facility] 11:51 Data reviewed: vital signs, nurses notes. Counseling: I had a detailed discussion with puneet the patient and/or guardian regarding: the historical points, exam findings, and any diagnostic results supporting the discharge/admit diagnosis, lab results, the need for outpatient follow up, to return to the emergency department if symptoms worsen or persist or if there are any questions or concerns that arise at home. 08/27 09:36 Order name: Strep; Complete Time: 10:31 [facility] 08/27 09:36 Order name: Influenza Screen (a \\T\\ B); Complete Time: 10:34 [facility] 08/27 09:36 Order name: SARS-COV-2 RT PCR (Document "Date of Onset" if Symptomatic); Complete Time: [facility] 11:32 08/27 10:26 Order name: Throat Culture EDMS Administered Medications: No medications were administered Disposition Summary: 08/27/21 11:53 Discharge Ordered Location: Home [facility] Condition: Stable [facility] Diagnosis - Coronavirus infection, unspecified [facility] Followup: [facility] - With: Private Physician - When: 2 - 3 days - Reason: Recheck today's complaints, Continuance of care, Re-evaluation by your physician Discharge Instructions: - Discharge Summary Sheet [facility] - COVID-19 [facility] Forms: - Medication Reconciliation Form [facility] - Thank You Letter [facility] - Antibiotic Education [facility] - Prescription Opioid Use [facility] Signatures: Dispatcher [employer] EDAniket Medellin MD MD cha Mickail, Joel, PA PA Keerthi Blandon, RN RN iw
--- NOTE | 2021-08-27 11:54 | ER ---
Nurse's Notes [facility] Name: Laurence Espinoza Age: 20 yrs Sex: Female : 2000 Arrival Date: 08/27/2021 Time: 09:21 Bed DIS3 Private MD: Diagnosis: Coronavirus infection, unspecified Presentation: 08/27 09:38 Chief complaint: Patient states: yesterday had a sore throat, felt tired, had alejandra iw drainage and had subjective fever, recently had a baby a week ago. Coronavirus screen: Client presents with at least one sign or symptom that may indicate coronavirus-19. Ebola Screen: Patient negative for fever greater than or equal to 101.5 degrees Fahrenheit, and additional compatible Ebola Virus Disease symptoms Patient denies exposure to infectious person. Patient denies travel to an Ebola-affected area in the 21 days before illness onset. No symptoms or risks identified at this time. Initial Sepsis Screen: Does the patient meet any 2 criteria? No. Patient's initial sepsis screen is negative. Does the patient have a suspected source of infection? No. Patient's initial sepsis screen is negative. Risk Assessment: Do you want to hurt yourself or someone else? Patient reports no desire to harm self or others. Onset of symptoms was August 26, 2021. 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 - Social history:: Smoking status: Patient denies any tobacco usage or history of. Screenin:05 Abuse screen: Denies threats or abuse. Denies injuries from another. Nutritional iw screening: No deficits noted. Tuberculosis screening: No symptoms or risk factors identified. Fall Risk None identified. Assessment: 09:50 General: Appears comfortable, Behavior is calm, cooperative, Reports fatigue for 12-24 aa5 hours. Pain: Denies pain. Neuro: Level of Consciousness is awake, alert, obeys commands, Oriented to person, place, time, situation. Cardiovascular: Heart tones S1 S2 present Rhythm is regular. Respiratory: Airway is patent Respiratory effort is even, unlabored, Respiratory pattern is regular, symmetrical, Breath sounds are clear bilaterally. GI: No signs and/or symptoms were reported involving the gastrointestinal system. : No signs and/or symptoms were reported regarding the genitourinary system. EENT: Reports sore throat . Derm: Skin is pink, warm \T\ dry. Musculoskeletal: Range of motion: intact in all extremities. 11:20 Reassessment: Patient is alert, oriented x 3, equal unlabored respirations, skin aa5 warm/dry/pink. Vital Signs: 09:38 Resp 16 S; Temp 98.4(O); iw 09:57 BP 121 / 79; Pulse 109; Resp 16; Pulse Ox 98% on R/A; iw 11:20 BP 107 / 92; Pulse 98; Resp 17 S; Temp 98.4(O); Pulse Ox 100% on R/A; aa5 ED Course: 09:21 Patient arrived in ED. yamilka 09:21 [facility] King [facility] puneet 09:30 Aniket Alfonso MD is Attending Physician. rosa 09:35 Gloria Singleton, RN is Primary Nurse. aa 09:40 Triage completed. iw 09:41 Arm band placed on. iw 12:05 No provider procedures requiring assistance completed. Patient did not have IV access iw during this emergency room visit. 12:06 Patient has correct armband on for positive identification. iw Administered Medications: No medications were administered Medication: 12:06 VIS not applicable for this client. iw Outcome: 11:53 Discharge ordered by . puneet 12:05 Discharged to home ambulatory. iw 12:05 Condition: good 12:05 Discharge instructions given to patient, Instructed on discharge instructions, follow up and referral plans. Demonstrated understanding of instructions, follow-up care. 12:06 Patient left the ED. iw Signatures: Aniket Alfonso MD MD cha Mickail, Joel, PA PA jmm Williams, Irene, RN RN iw Calderon, Audri, RN RN aa Michelle Conte
[2021-08-27 12:11] VITALS: TEMP 98.4
[2021-08-27 12:14] VITALS: BP 107/92; O2SAT 100
== END 2021-08-27 12:06 | disposition home or self-care (01) ==
LOC: ER 09:13
DX: U07.1 COVID-19 (principal)
CPT/HCPCS: 87070; 87081; 87804 ×2; U0003